=== PATIENT | female | born 1995 | race Caucasian/White ===

== ENCOUNTER → 2021-03-26 01:57 | Outpatient (CLI) | payer OTHER, SELFPAY ==
[2021-03-26 17:39] LABS: SARS-CoV-2 RNA PCR Negative
== END ==
PROVIDERS: Visit Provider Obstetrics & Gynecology
DX: Z01.812 Encounter for preprocedural laboratory examination (principal); Z20.822 Contact with and (suspected) exposure to COVID-19
CPT/HCPCS: C9803; U0003; U0005

== ENCOUNTER 2021-03-26 08:48 | Outpatient (CLI) | payer OTHER, SELFPAY | END 2021-03-26 08:49 | disposition home or self-care (01) | LOC: ANHLAB 08:53 | PROVIDERS: Visit Provider Obstetrics & Gynecology | DX: R10.2 Pelvic and perineal pain (principal); Z01.818 Encounter for other preprocedural examination | CPT/HCPCS: 36415; 86850; 86900; 86901; C9803; U0003; U0005 ==

== ENCOUNTER 2021-03-29 00:57 | Day surgery (SDC) | payer OTHER, SELFPAY ==
[2021-03-25 15:10] VITALS: BMI 32.6
--- NOTE | 2021-03-27 07:55 | P.HP_ITS ---
H&P: HPI History of Present Illness Date/Time: 03/27/21 07:55 20 for diagnostic laparoscopy left ovarian cystectomy she also has a hymeneal tag bothers her and that be. Risks and benefits reviewed including but not exclusive of , aspiration, bleeding, transfusion, perforation injury to bowel, bladder, ureters, or other internal organs with need for laparotomy. She had all questions answered and asked to proceed Chief Complaint: Pelvic pain/left ovarian cyst/hymeneal tag Review of Systems Review of Systems: All systems reviewed & are unremarkable except as noted in HPI and below [facility] Social History Social History Smoking status: Never smoker Spiritual care concerns: No Meds Home Medications and Allergies Home Medications Medication Instructions Recorded Confirmed Type No Home Medications 03/25/21 03/25/21 History Allergies Allergy/AdvReac Type Severity Reaction Status Date / Time morphine Allergy Severe Other Verified 03/25/21 15:08 Exam Const: General: no acute distress Eyes: General: appearance normal, both eyes and all related structures Neck: Neck: supple and no JVD Thyroid: thyroid normal Resp: Effort & Inspection: normal respiratory effort Auscultation: clear to auscultation bilaterally Cardio: Rate: regular rate Rhythm: regular rhythm GI: Inspection: non-distended GI Palp: Yes Soft to palpation, No Tenderness to palpation present (GI) and No Guarding due to palpation present (GI) Auscultation: normal bowel sounds : External Female Exam: normal external appearance (Moderate to large-sized the medial tag is seen at the anterior fourchette) Speculum Exam - Vagina: normal appearance of the vagina Speculum Exam - Cervix: normal appearance of the cervix Bimanual exam- vagina & uterus: enlarged and Uterine tenderness Bimanual Exam- Adnexa, other: tender on the left and Adnexal mass present on the left tender Skin: General skin exam: no rashes or lesions noted Extrem: General: normal to inspection and no edema Psych: Mental Status: mental status grossly normal Affect: normal affect Assessment and Plan Additional Plan Impression: Pelvic pain/left ovarian cyst/hymeneal tag Plan: Diagnostic laparoscopy/left ovarian cystectomy/excision of hymeneal tag
[2021-03-29] VITALS (9 sets, daily range): BP systolic 105–137; BP diastolic 55–88; PULSE 63–95; RESP 16–20; TEMP 36.4–36.9; O2SAT 98–100
--- NOTE | 2021-03-29 06:33 | WPDHPUPDATE1 ---
History and Physical Update Update Date/Time: 03/29/21 06:33 History and Physical has been reviewed, including an updated exam of the patient. There are NO changes in the patient's condition. Risks, benefits, and alternatives have been discussed and questions answered. Patient agrees to proceed with procedure.
[2021-03-29] MEDS: ACETAMINOPHEN 500 MG TABLET 1000 MG PO (09:55)
[2021-03-29] MEDS: KETOROLAC 15 MG/ML VIAL (*BKC) IV PUSH (10:05)
[2021-03-29] MEDS: LACTATED RINGERS 1,000 ML 30 ML IV CONT (10:05)
--- NOTE | 2021-03-29 10:12 | WPDANESEPPF ---
Anes - Initial Pre Proc Eval Procedure: Operation Date: 03/29/21 11:30 Proposed Procedures p Diagnostic Laparoscopy, Left Ovarian Cystectomy, - Kirill Chavira MD s Removal Hymenal Tag - Kirill Chavira MD Date/Time: 03/29/21 10:12 Surgeon: Kirill Chavira MD Pre Op Diagnosis: pelvic pain, dyspurenia, hymenal tag Patient Data Age: 26 Gender: F Height: 1.57 m Weight: 81.65 kg Last Vital Signs Temp 36.9 C 03/29/21 09:49 Pulse 90 03/29/21 09:49 Resp 16 03/29/21 09:49 BP 137/88 03/29/21 09:49 Pulse Ox 100 03/29/21 09:49 Allergies Allergy/AdvReac Type Severity Reaction Status Date / Time morphine Allergy Severe Palpitation Verified 03/29/21 09:53 s Home Medications Medication Instructions Recorded Confirmed Type hydrocodone-acetaminophen 1 tablet PO Q4H PRN #20 tablet 03/29/21 Rx Patient hx anesthesia problems: none Family hx anesthesia problems: none PMFSH Past Medical History Medical History (Updated 03/29/21 @ 10:13 by Kirill Bird MD) Obesity Surgical History Surgical History (Updated 03/29/21 @ 10:15 by Kirill Bird MD) H/O laparoscopy History of esophagogastroduodenoscopy (EGD) Social History Social History Smoking status: Never smoker Living arrangements: with family Spiritual care concerns: No Anes - Eval Final PreProcedure Day of Procedure 03/29/21 10:12 Patient weight: obese Heart: regular rate and rhythm Lungs: clear to auscultation Airway: Mallampati scale class II Neurological: alert and oriented Last oral intake: >/= 8 hours ASA classification: II Emergent: no Anesthetic plan: proceed Anesthesia type and monitoring: general ETT and standard monitoring Informed Consent: The patient's anesthetic plan and its attendant risks and benefits were discussed with the patient/family/POA. Questions were solicited and answers provided to the satisfaction of the patient/family/POA.
[2021-03-29] MEDS: SCOPOLAMINE 1.5 MG PATCH TRANSDERM (10:24)
--- NOTE | 2021-03-29 11:35 | W.PM.PROC2 ---
Procedure Note - Detailed Date of Procedure 03/29/21 Pre-op Diagnosis pelvic pain, dyspurenia, hymenal tag Post-op Diagnosis same (with endo and adhesions) Procedure Performed Laparoscopic destruction of endometriosis/lysis of adhesions excision of hymeneal tag Surgeon Kirill Chavira MD Anesthesia general Indications this is a 26-year-old status post hysterectomy and bilateral salpingectomy with pelvic pain and hymeneal tag Findings hymeneal tag on laparoscopy absent uterus with multiple adhesions normal-appearing ovaries . Pelvic adhesions. Small area of endometriosis along the vaginal cuff Description of Procedure patient is prepped draped in normal sterile fashion placed in the dorsal lithotomy position. Under excellent general endotracheal anesthesia weighted speculum placed post were vagina . Sponge stick was placed in vagina and the bladder emptied of clear urine. The weighted speculum was removed and the gloves were changed. A supraumbilical incision made in the Veress needle passed in the abdomen. Abdomen was filled with CO2 gas [id number]. The 5mm trocar advanced in the abdomen under direct visualization assuring no injury. The patient placed in Trendelenburg and a suprapubic incision made. 5Mm trocar advanced under direct visualization assuring no injury. Uterus was absent multiple adhesions were seen the ovaries actually appeared within normal limits and the previously seen left ovarian cyst was not present. Irrigation undertaken to clear and adhesions were brought down by sharp dissection revealing normal-appearing ovaries . A small area of endometriosis was seen along the vaginal cuff. This was cauterized at 35 w per 2nd with monopolar cautery. Irrigation was undertaken until clear. And no other abnormalities were seen. The gas removed from the abdomen and the in trocars then removed. The incisions closed with 4-0 Monocryl and glue. Attention was then turned to the perineum. The hymeneal tag was sharply dissected using monopolar cautery. Two [id number] 3-0 Vicryl were placed for closure and the patient was awakened. Blood loss was estimated at5cc for the entire procedure. All sponge, needle, instrument counts were correct. There were no immediate complications Estimated Blood Loss 5 Drains No Packing No Pathology yes Complications No immediate complications Condition stable Disposition PACU
[2021-03-29] MEDS: fentaNYL CITRATE INJ (*CRX) 100 MCG/2 ML VIAL 25 MCG IV PUSH ×5 (12:02→12:31)
[2021-03-29] MEDS: HYDROcodone/acetaminophen (*CRX) 5-325 MG TABLET 1 TAB PO (13:24)
== END 2021-03-29 13:55 | disposition home or self-care (01) ==
PROVIDERS: Visit Provider Obstetrics & Gynecology
PROC: (CPT 49320; principal; 2021-03-29 11:30)
PROC: (CPT 56700; 2021-03-29 11:30)
DX: R10.2 Pelvic and perineal pain (principal); N80.3 Endometriosis of pelvic peritoneum; N89.8 Other specified noninflammatory disorders of vagina; N94.10 Unspecified dyspareunia; N73.6 Female pelvic peritoneal adhesions (postinfective); E66.9 Obesity, unspecified; Z68.32 Body mass index [BMI] 32.0-32.9, adult
CPT/HCPCS: 56700; 58662; 88305; A9270; J0330; J1100; J1885; J2250; J2405; J2704; J3010; J7030; J7120

== ENCOUNTER 2021-04-08 12:29 | Emergency (ER) | payer OTHER, SELFPAY ==
--- NOTE | ~2021-04-08 | CT_ITS ---
EXAMINATION: CT abdomen pelvis w con DATE: 04/08/2021 15:28 INDICATION: Left lower quadrant abdominal pain and flank pain. TECHNIQUE: Computed tomography (CT) of the abdomen and pelvis was performed with 100 mL Omnipaque-350 intravenous contrast. Automated exposure control and iterative reconstruction technique were employe d. The dose-length product was 825.31 mGy-cm. COMPARISON: None FINDINGS: Lung bases are clear. Heart size is normal. No pericardial or pleural effusion. Liver, gallbladder, p ancreas, spleen, bilateral adrenal glands and kidneys are normal. Bowels including the appendix are n ormal. Bladder is normal. The uterus is not identified and has likely been surgically resected. Small amount of likely physiologic free fluid in the cul-de-sac. No abscess or free intraperitoneal gas. C ouple small phleboliths in the pelvis. No pathologically enlarged abdominal or pelvic lymphadenopathy . Bones are unremarkable. IMPRESSION: 1. No acute intra-abdominal/pelvic process. Reviewed, dictated and finalized at location B.
[2021-04-08 13:01] VITALS: BP 150/105; PULSE 93; RESP 18; TEMP 37; O2SAT 100
[2021-04-08 13:34] LABS: Basophils Percent Auto 0.3 % (0.2-1.2); Eosinophils Percent Auto 0.4 % (0-4.4); Hematocrit 40.8 % (37.0-47.0); Hemoglobin 13.9 g/dL (12.0-15.0); Immature Granulocyte Absolute 0.03 K/mm3 (0.00-0.031); Immature Granulocyte Percent A 0.3 % (0-0.5); Lymphocytes Absolute Auto 3.02 K/mm3 (0.9-3.2); Lymphocytes Percent Auto 30.8 % (18.3-44.2); Mean Corpuscular HGB Conc 34.1 g/dl (32-36); Mean Corpuscular Hemoglobin 30.5 pg (26-34); Mean Corpuscular Volume 89.7 fl (80-100); Mean Platelet Volume 9.1 fl (7.4-10.4); Monocytes Absolute Auto 0.6 K/mm3 (0.1-0.6); Monocytes Percent Auto 5.9 % (2.6-8.5); Neutrophils Absolute Auto 6.1 K/mm3 (1.3-6.7); Neutrophils Percent Auto 62.3 % (45.5-73.1); Platelet Count Result 311 k/mm3 (150-375); Red Blood Count 4.55 M/mm3 (4.2-5.4); Red Cell Distribution Width 12.4 % (11.5-14.5); White Blood Count 9.8 K/mm3 (4.5-10.0)
[2021-04-08 13:51] LABS: Alanine Aminotransferase 21 U/L (4-35); Albumin Level 4.7 g/dL (3.5-5.1); Alkaline Phosphatase 68 U/L (38-126); Anion Gap 9 mmol/L (8-16); Aspartate Amino Transferase 21 U/L (14-36); Bilirubin,Total 0.9 mg/dL (0.2-1.3); Blood Urea Nitrogen 8 mg/dL (7-17); Calcium 9.8 mg/dL (8.4-10.2); Carbon Dioxide 23 mmol/L (22-30); Chloride 105 mmol/L (98-107); Estimated CRCL calculation 115 ml/min; Estimated Glomerular Filt Rate > 60; Glucose 92 mg/dL (65-110); Lipase 94 U/L (23-300); Sodium 137 mmol/L (137-145)
--- NOTE | 2021-04-08 14:06 | ED.ABDPAIN ---
HPI - Abdominal Pain General Chief Complaint: Abdominal Pain Stated Complaint: LLQ PAIN TO THE BACK, S/P SURG 03/29- Time Seen by Provider: 04/08/21 13:51 History of Present Illness HPI narrative: 26 yo female presents to the ED c/o flank pain. She has had LLQ and flank pain for a long time. She has sugery on 03/29 for an ovarian cyst. She has had worse pain since the surgery. She also reports urinary frequency. No dysuria, hematuria, vaginal bleeding, discharge. Related Data Allergies Allergy/AdvReac Type Severity Reaction Status Date / Time morphine Allergy Severe Palpitation Verified 03/29/21 09:53 s Review of Systems Review of Systems: All systems reviewed & are unremarkable except as noted in HPI and below Constitutional: Constitutional: Denies fever(s) Cardiovascular: Cardiovascular: Denies chest pain Respiratory: Respiratory: Denies dyspnea Neurologic: Denies numbness and Denies weakness PMFSH Past Medical History Medical History (Updated 04/09/21 @ 00:00 by Aminta Vazquez) Obesity Surgical History Surgical History (Updated 03/29/21 @ 10:15 by Kirill Bird MD) H/O laparoscopy History of esophagogastroduodenoscopy (EGD) Social History Social History Smoking status: Never smoker Spiritual care concerns: No Exam Const: General: no acute distress and alert Orientation/consciousness: patient oriented x3 HENMT: Head: normal to inspection Resp: Effort & Inspection: normal respiratory effort Auscultation: clear to auscultation bilaterally, no rales, no rhonchi and no wheezes Cardio: Jugular venous distension: no JVD Rate: regular rate Rhythm: regular rhythm GI: Inspection: non-distended GI Palp: Yes Soft to palpation and Yes Tenderness to palpation present (GI) (LLQ) : General: Yes CVA tenderness on the left Skin: General skin exam: normal color Neuro: General: patient oriented x3 and moves all extremities Speech: normal speech Gait exam (Neuro): Normal gait present Extrem: General: no edema Psych: Appearance: well kempt Affect: normal affect Course Vital Signs Vital signs: Vital Signs Temperature 37.0 C 04/08/21 13:01 Pulse Rate 93 04/08/21 13:01 Respiratory Rate 18 04/08/21 13:01 Blood Pressure 150/105 H 04/08/21 13:01 Pulse Oximetry 100 04/08/21 13:01 Temperature 37.0 C 04/08/21 13:01 Pulse Rate 90 04/08/21 16:04 Respiratory Rate 18 04/08/21 16:04 Blood Pressure 147/96 H 04/08/21 16:04 Pulse Oximetry 100 04/08/21 16:04 MDM - Abdominal Pain Differential Diagnosis Differential diagnosis: Likely calculus of kidney and constipation Medical Records Attestation: I reviewed the patient's medical records. Lab Data Attestation: I reviewed the patient's lab results. Result diagrams: 04/08/21 13:23 04/08/21 13:23 Labs: Lab Results 04/08/21 04/08/21 04/08/21 Range/Units 13: 13:23 13:55 WBC 9.8 (4.5-10.0) K/mm3 RBC 4.55 (4.2-5.4) M/mm3 Hgb 13.9 (12.0-15.0) g/dL Hct 40.8 (37.0-47.0) % MCV 89.7 (80-100) fl MCH 30.5 (26-34) pg MCHC 34.1 (32-36) g/dl RDW 12.4 (11.5-14.5) % Plt Count 311 (150-375) k/mm3 MPV 9.1 (7.4-10.4) fl Immature Gran % (Auto) 0.3 (0-0.5) % Neut % (Auto) 62.3 (45.5-73.1) % Lymph % (Auto) 30.8 (18.3-44.2) % [place] % (Auto) 5.9 (2.6-8.5) % Eos % (Auto) 0.4 (0-4.4) % Baso % (Auto) 0.3 (0.2-1.2) % Lymph # (Auto) 3.02 (0.9-3.2) K/mm3 [place] # (Auto) 0.6 (0.1-0.6) K/mm3 Eos # (Auto) 0.0 (0-0.3) K/mm3 Baso # (Auto) 0.0 (0.0-0.1) K/mm3 Abs Immat Gran (auto) 0.03 (0.00-0.031) K/mm3 Absolute Neuts (auto) 6.1 (1.3-6.7) K/mm3 Absolute Nucleated RBC 0.0 (0.0-0.012) K/mm3 Nucleated RBC % 0.0 (0.0-0.2) % Sodium 137 (137-145) mmol/L Potassium 4.0 (3.4-5.0) mmol/L Chloride 105 (98-107) mmol/L Carbon Gregor
[2021-04-08 14:10] LABS: Add Urine Microscopic? NO; Appearance Urine Clear (Clear); Bilirubin Urine Negative (Negative); Blood Urine Negative (Negative); Color Urine Yellow (Yellow); Glucose Urine UA Negative (Negative); Ketones Urine Negative (Negative); Leukocyte Esterase Ur Negative LEU/UL (Negative); Nitrate Urine Negative (Negative); Protein Urine Negative (Negative); Specific Grav Ur 1.015 (1.001-1.035); Urobilinogen Urine Negative mg/dL (<2.0)
[2021-04-08 16:04] VITALS: BP 147/96; PULSE 90; RESP 18; O2SAT 100
== END 2021-04-08 16:04 | disposition home or self-care (01) ==
PROVIDERS: Family Medicine; Emergency Provider Emergency Medicine
DX: R10.32 Left lower quadrant pain (principal); E66.9 Obesity, unspecified; Z68.34 Body mass index [BMI] 34.0-34.9, adult
CPT/HCPCS: 36415; 74177; 80053; 81003; 83690; 85025; 99284; Q9967

== ENCOUNTER → 2021-05-07 04:00 | Outpatient (CLI) | payer OTHER, SELFPAY ==
[2021-05-07 18:18] LABS: SARS-CoV-2 RNA PCR Negative
== END ==
PROVIDERS: Visit Provider Internal Medicine Gastroenterology
DX: Z20.822 Contact with and (suspected) exposure to COVID-19 (principal)
CPT/HCPCS: C9803; U0003; U0005

== ENCOUNTER 2021-05-10 01:30 | Day surgery (SDC) | payer OTHER, SELFPAY ==
[2021-04-30 14:15] VITALS: BMI 31.4
--- NOTE | 2021-05-09 20:40 | PM.HPGS ---
History of Present Illness History of Present Illness Consent: Risks, benefits, and alternatives have been discussed and questions answered. Patient agrees to proceed with procedure. Chief complaint: left sided pain, diarrhea Narrative: Carmenza Roberts is a 26 year old female who has been troubled by diarrhea, as if 'food goes right through' Also has unexplained LLQ pain. CT negative. She had recent laparoscopic procedure thinking there was an ovarian cyst but this procedure was negative. She has had a prior tubal ligation, hysterectomy, treatment for endometriosis, but the pain along the left pelvic rim persists. Many years ago she was told she had irritable bowel syndrome. The loose stools started this year but the pain in the left side has been constant. lately she will have radiation of the pain to her back, particularly if she is standing. Review of Systems Review of Systems: All systems reviewed & are unremarkable except as noted in HPI and below PMFSH Past Medical History Medical History Obesity Surgical History Surgical History H/O laparoscopy History of esophagogastroduodenoscopy (EGD) Social History Social History Smoking status: Never smoker Alcohol intake: never Substance use: never Substance use type: does not use Living arrangements: with family Spiritual care concerns: No Meds Home Medications and Allergies Home Medications Medication Instructions Recorded Confirmed Type No Home Medications 04/30/21 04/30/21 History Allergies Allergy/AdvReac Type Severity Reaction Status Date / Time morphine Allergy Severe Palpitation Verified 05/10/21 11:16 s Exam Resp: Auscultation: clear to auscultation bilaterally Cardio: Rate: regular rate Rhythm: regular rhythm GI: GI Palp: Yes Soft to palpation and No Tenderness to palpation present (GI) Assessment and Plan Assessment and plan (1) Chronic diarrhea: Code(s): K52.9 - Noninfective gastroenteritis and colitis, unspecified Status: Acute Assessment and Plan: Colonoscopy with possible biopsy or polypectomy or cautery or injection of substances.
[2021-05-10 11:17] VITALS: BP 148/90; PULSE 85; RESP 16; TEMP 36.4; O2SAT 100
[2021-05-10] MEDS: LACTATED RINGERS 1,000 ML 150 ML IV CONT (11:37)
--- NOTE | 2021-05-10 11:39 | P.PNAN_ITS ---
Anes - Initial Pre Proc Eval Procedure: Operation Date: 05/10/21 12:15 Proposed Procedures p Colonoscopy - Saurav Hu MD Date/Time: 05/10/21 11:39 Surgeon: Saurav Hu MD Pre Op Diagnosis: left sided pain, diarrhea Patient Data Age: 26 Gender: F Height: 1.57 m Weight: 78 kg Last Vital Signs Temp 97.5 F L 05/10/21 11:17 Pulse 85 05/10/21 11:17 Resp 16 05/10/21 11:17 BP 148/90 H 05/10/21 11:17 Pulse Ox 100 05/10/21 11:17 Allergies Allergy/AdvReac Type Severity Reaction Status Date / Time morphine Allergy Severe Palpitation Verified 05/10/21 11:16 s Home Medications Medication Instructions Recorded Confirmed Type No Home Medications 04/30/21 04/30/21 History Patient hx anesthesia problems: none Family hx anesthesia problems: none Results Review: All pre-operative results and documents have been reviewed as part of the pre-operative evaluation. [facility] Past Medical History Medical History (Updated 05/09/21 @ 20:41 by Saurav Hu MD) Obesity Surgical History Surgical History (Updated 03/29/21 @ 10:15 by Kirill Bird MD) H/O laparoscopy History of esophagogastroduodenoscopy (EGD) Social History Social History Smoking status: Never smoker Alcohol intake: never Substance use: never Substance use type: does not use Living arrangements: with family Spiritual care concerns: No Anes - Eval Final PreProcedure Day of Procedure 05/10/21 11:39 Patient weight: obese Heart: regular rate and rhythm Airway: Mallampati scale class II Neurological: alert and oriented Last oral intake: >/= 8 hours ASA classification: II Emergent: no Anesthetic plan: proceed Anesthesia type and monitoring: general GIVS and standard monitoring Results Review: All pre-operative results and documents have been reviewed as part of the pre-operative evaluation. Informed Consent: The patient's anesthetic plan and its attendant risks and benefits were discussed with the patient/family/POA. Questions were solicited and answers provided to the satisfaction of the patient/family/POA.
[2021-05-10 12:19] VITALS: BP 105/60; PULSE 62; RESP 21; O2SAT 100
[2021-05-10 12:29] VITALS: BP 105/64; PULSE 60; RESP 22; O2SAT 100
[2021-05-10 12:39] VITALS: BP 113/78; PULSE 61; RESP 20; O2SAT 100
== END 2021-05-10 12:55 | disposition home or self-care (01) ==
PROVIDERS: Visit Provider Internal Medicine Gastroenterology
PROC: 0DJD8ZZ Inspection of Lower Intestinal Tract, Via Natural or Artificial Opening Endoscopic (ICD-10-PCS; CPT 45378; principal; 2021-05-10 12:15)
DX: K52.9 Noninfective gastroenteritis and colitis, unspecified (principal)
CPT/HCPCS: 45380; 88305; J2704; J7120

== ENCOUNTER 2022-03-10 12:48 | Outpatient (CLI) | payer OTHER, SELFPAY | END 2022-03-10 12:49 | disposition home or self-care (01) | PROVIDERS: PCP Physician Assistant; Visit Provider Obstetrics & Gynecology | DX: N83.202 Unspecified ovarian cyst, left side (principal) | CPT/HCPCS: 36415; 86850; 86900; 86901 ==

== ENCOUNTER 2022-03-14 02:23 | Day surgery (SDC) | payer OTHER, SELFPAY ==
[2022-03-05 10:41] VITALS: BMI 34.0
--- NOTE | 2022-03-05 11:12 | SUR.PREOP ---
Report to the Outpatient Waiting Room, entrance under the green pavilion located off [facility], at time 0730 on date 03/14/22. OR Time: 0930. - You and your visitor will be asked a series of questions to screen for COVID 19 for your protection. - Only one visitor is allowed at this time. - The patient visitor is requested to leave or wait in car when not with patient. - A mask is required within the hospital. Patients may have clear liquids (water, carbonated beverages, clear teas, apple juice) until 3 hours (0630) prior to surgery with a maximum of 20 ounces. - No food from midnight until time of surgery - Infants may have breast milk until 4 hours before surgery, infant formula 6 hours prior to surgery. - Children will be allowed to drink immediately following surgery. If applicable, please bring a bottle or sippy cup to assist with drinking. Juice, water, soda, and popsicles are readily available. For infants on formula, please bring formula the day of surgery. Pacifiers are allowed. Take the following medications with a SIP of water the morning of surgery: ___NA Medications to discontinue per physician NA Date to take last dose NA Please no make-up, nail urdu, hairspray, perfume, deodorant, or body powder the day of surgery. No jewelry (including any body piercings) or valuables the day of surgery, leave them at home. Please take a shower or bath the night before, or the morning of, surgery with an antibacterial soap. Wear comfortable, loose fitting clothing. Children are encouraged to wear pajamas. - Jewelry must be removed prior to entering the operating room. Rings and piercings that are not removed may be cut off. - The hospital will not accept responsibility for valuables. - Please leave all valuables, including medications, at home the day of surgery. If you are going home after surgery, a licensed cdl truck driver must drive you home. - NO public transportation without another adult. - We recommend that an adult stay with you for 24 hours following discharge. - We also recommend that you do not drive, make important decision, drink alcoholic beverages, or take any drugs that were not prescribed by your health care provider for at least 24 hours after your discharge time. For Pediatric surgeries, we recommend two adults accompany the child home (only one inside the building at this time). Follow any additional instructions given to you from your surgeon. If you or anyone in your household have experienced Covid symptoms in the past week, please notify your surgeon or the nurse liaison at the phone number below for possible testing. Telephone instructions given to ____patient and asked if any additional questions and then verbalized understanding. Patient advised to call surgeon office or pre surgery nurse liaison [phone] if any additional questions.
--- NOTE | 2022-03-12 06:55 | PM.IMHP ---
H&P: HPI History of Present Illness Date/Time: 03/12/22 06:55 Chief Complaint: pelvic pain and left ovarian cyst Narrative: this is a 27-year-old status post hysterectomy admitted for diagnostic laparoscopy and left cystectomy. She has severe pelvic pain which has been unrelenting for more than 6 months. She had a negative GI workup. Risks and benefits reviewed including but not exclusive of , aspiration pneumonia, bleeding, transfusion, perforation injury to bowel, bladder, ureters, or other internal organs. She received the [employer] handout entitled laparoscopy. She asked to proceed PMFSH Past Medical History Medical History Obesity Surgical History Surgical History H/O laparoscopy History of esophagogastroduodenoscopy (EGD) Social History Social History Smoking status: Never smoker Alcohol intake: never Substance use: never Substance use type: does not use Spiritual care concerns: No Meds Home Medications and Allergies Home Medications Medication Instructions Recorded Confirmed Type escitalopram oxalate 10 mg tablet 10 mg PO HS 03/05/22 03/05/22 History Allergies Allergy/AdvReac Type Severity Reaction Status Date / Time morphine Allergy Severe Palpitation Verified 03/05/22 10:40 s Exam : Bimanual exam- vagina & uterus: uterus absent and other ( cervix absent) Bimanual Exam- Adnexa, other: tender bilaterally Assessment and Plan Assessment and plan (1) Pelvic pain: Code(s): R10.2 - Pelvic and perineal pain Status: Acute (2) Left ovarian cyst: Code(s): N83.202 - Unspecified ovarian cyst, left side Status: Acute Plan diagnostic laparoscopy with possible left cyst salpingo-oophorectomy were cystectomy
[2022-03-14] VITALS (11 sets, daily range): BP systolic 108–143; BP diastolic 48–91; PULSE 68–91; RESP 12–16; TEMP 36.3–36.5; O2SAT 96–100
--- NOTE | 2022-03-14 06:43 | WPDHPUPDATE1 ---
History and Physical Update Update Date/Time: 03/14/22 06:43 History and Physical has been reviewed, including an updated exam of the patient. There are NO changes in the patient's condition. Risks, benefits, and alternatives have been discussed and questions answered. Patient agrees to proceed with procedure.
[2022-03-14] MEDS: ACETAMINOPHEN 500 MG TABLET 1000 MG PO (07:51)
[2022-03-14] MEDS: LACTATED RINGERS 1,000 ML 30 ML IV CONT (08:09)
--- NOTE | 2022-03-14 08:20 | WPDANESEPPF ---
Anes - Initial Pre Proc Eval Procedure: Operation Date: 03/14/22 09:30 Proposed Procedures p Laparoscopic Left Ovarian Cystectomy, Possible Left Salpingo-Oophorectomy - Kirill Chiu MD Date/Time: 03/14/22 08:20 Surgeon: Kirill Chiu MD Pre Op Diagnosis: Left Ovarian Cyst, Pain Patient Data Age: 27 Gender: F Height: 1.56 m Weight: 82.9 kg Last Vital Signs Temp 36.5 C 03/14/22 08:15 Pulse 88 03/14/22 08:15 Resp 16 03/14/22 08:15 BP 141/91 H 03/14/22 08:15 Pulse Ox 100 03/14/22 08:15 O2 Del Method Room Air 03/14/22 08:15 Allergies Allergy/AdvReac Type Severity Reaction Status Date / Time morphine Allergy Severe Palpitation Verified 03/05/22 10:40 s Home Medications Medication Instructions Recorded Confirmed Type escitalopram oxalate 10 mg tablet 10 mg PO HS 03/05/22 03/05/22 History hydrocodone 5 mg-acetaminophen 325 1 tablet PO Q4H PRN pain #30 tabs 03/14/22 Rx mg tablet Patient hx anesthesia problems: none Family hx anesthesia problems: none Results Review: All pre-operative results and documents have been reviewed as part of the pre-operative evaluation. [facility] Past Medical History Medical History (Updated 03/12/22 @ 07:00 by Kirill Chiu MD) Obesity Surgical History Surgical History (Updated 03/14/22 @ 08:20 by Kirill Bird MD) H/O laparoscopy H/O: hysterectomy History of esophagogastroduodenoscopy (EGD) Social History Social History Smoking status: Never smoker Alcohol intake: never Substance use: never Substance use type: does not use Living arrangements: with family Spiritual care concerns: No Anes - Eval Final PreProcedure Day of Procedure 03/14/22 08:20 Patient weight: obese Heart: regular rate and rhythm Lungs: clear to auscultation Airway: Mallampati scale class II Last oral intake: >/= 8 hours ASA classification: II Emergent: no Anesthetic plan: proceed Anesthesia type and monitoring: general ETT and standard monitoring Results Review: All pre-operative results and documents have been reviewed as part of the pre-operative evaluation. Informed Consent: The patient's anesthetic plan and its attendant risks and benefits were discussed with the patient/family/POA. Questions were solicited and answers provided to the satisfaction of the patient/family/POA.
[2022-03-14] MEDS: KETOROLAC 15 MG/ML VIAL (*BKC) IV PUSH (08:39)
--- NOTE | 2022-03-14 09:35 | W.PM.PROC2 ---
Procedure Note - Detailed Date of Procedure 03/14/22 Pre-op Diagnosis Left Ovarian Cyst, Pain Post-op Diagnosis Same Procedure Performed Laparoscopic left salpingo-oophorectomy with lysis of adhesions Surgeon Kirill Chiu MD Anesthesia General Indications This is a 27-year-old status post hysterectomy with a large left ovarian cyst and pelvic pain Findings Absent uterus and tubes. Large left ovarian cyst that was encased in adhesions. Normal-appearing right ovary Description of Procedure The patient prepped draped in sterile fashion placed dorsal lithotomy position. Excellent general trach anesthesia weighted speculum placed in posterior fornix vagina. Sponge stick was placed and the bladder draining clear urine. The weighted speculum was removed. The gloves were changed Supraumbilical incision made the Veress needle passed in the abdomen. Abdomen filled with CO2 gas [id number]. The 5mm trocar advanced through the Optiview and no injury seen. Gas reattached patient placed in Trendelenburg. 5mm trocar was advanced in the suprapubic area under direct visualization assuring injury. Large complex left ovarian cyst encased in adhesions was noted. A left lower quadrant incision made and the 10mm trocar advanced under direct visualization assuring injury. Using pole and cut method the adhesions were sharply dissected avoiding injury to the under lying vital structures including bowel and blood vessels. Once the infundibulopelvic structure was skeletonized. This was clamped burned and cut with the LigaSure and placed in an Endo catch. This was removed through the left lower quadrant incision. Irrigation undertaken until clear. The right ovary appeared within normal limits was left. The gas removed from the abdomen. The incisions closed with 4-0 Monocryl glue. Sponge stick from and the patient went to recovery in satisfactory condition. All sponge, needle, instrument counts were correct. There were no immediate complications Estimated Blood Loss 5 Drains No Packing No Pathology Yes Complications No immediate complications Condition Stable Disposition PACU
[2022-03-14] MEDS: fentaNYL CITRATE INJ (*CRX) 100 MCG/2 ML VIAL 25 MCG IV PUSH ×4 (10:07→11:28)
== END 2022-03-14 11:55 | disposition home or self-care (01) ==
PROVIDERS: PCP Physician Assistant; Visit Provider Obstetrics & Gynecology
PROC: (CPT 49320; principal; 2022-03-14 09:30)
DX: N83.202 Unspecified ovarian cyst, left side (principal); R10.2 Pelvic and perineal pain; N73.6 Female pelvic peritoneal adhesions (postinfective); Z90.710 Acquired absence of both cervix and uterus; E66.9 Obesity, unspecified; Z68.34 Body mass index [BMI] 34.0-34.9, adult
CPT/HCPCS: 58661; 88305; A9270; J0330; J1100; J1885; J2250; J2405; J2704; J3010; J7030; J7120

== ENCOUNTER 2022-10-17 14:48 | Outpatient (CLI) | payer OTHER, SELFPAY | END 2022-10-17 14:49 | disposition home or self-care (01) | PROVIDERS: PCP Physician Assistant; Visit Provider Obstetrics & Gynecology | DX: R10.2 Pelvic and perineal pain (principal) | CPT/HCPCS: 36415; 86850; 86900; 86901 ==

== ENCOUNTER 2022-10-31 00:50 | Day surgery (SDC) | payer OTHER, SELFPAY ==
[2022-10-14 14:51] VITALS: BMI 36.4
--- NOTE | 2022-10-14 14:55 | PC.NURSE ---
Addendum entered by Susan Echevarria RN 10/22/22 11:35: PT TO ARRIVE AT 1215 ON 10/31/22 FOR SURGERY AT 1415. Original Note: Report to the Outpatient Waiting Room, entrance under the green pavilion located off [facility], at time 7:30 on date 10/24/22. Planned Procedure Time: 9:30. Time changes happen often and if your time is changed the preop area will call you the afternoon before. - You and your visitor will be asked to self-screen and do not enter if you have any COVID symptoms. - Only one visitor is requested with a max of two and NO children visitors are allowed at this time. - The patient visitor may be requested to leave or wait in car when not with patient due to distancing restrictions. - A mask is optional within the hospital at this time. Patients may have clear liquids (water, carbonated beverages, clear teas, apple juice) until 3 hours prior to surgery with a maximum of 20 ounces. - No food from midnight until time of surgery Take the following medications with a SIP of water the morning of surgery: N/A DO NOT STOP ANY OF YOUR OTHER PRESCRIPTION MEDICATIONS PRIOR TO SURGERY EXCEPT THE FOLLOWING Medications to discontinue per physician: N/A Date to take last dose: N/A Please no make-up, nail azerbaijani, hairspray, perfume, deodorant, or body powder the day of surgery. No jewelry (including any body piercings) or valuables the day of surgery, leave them at home. Please take a shower or bath the night before, or the morning of, surgery with an antibacterial soap. Wear comfortable, loose fitting clothing. - Jewelry must be removed prior to entering the operating room. Rings and piercings that are not removed may be cut off. - The hospital will not accept responsibility for valuables. - Please leave all valuables, including medications, at home the day of surgery. If you are going home after surgery, a licensed dedicated regional driver must drive you home. - NO public transportation without another adult if you receive anesthesia. - We recommend that an adult stay with you for 24 hours following discharge. - We also recommend that you do not drive, make important decision, drink alcoholic beverages, or take any drugs that were not prescribed by your health care provider for at least 24 hours after your discharge time. Follow any additional instructions given to you from your surgeon. If you or anyone in your household have experienced Covid symptoms in the past week, please notify your surgeon or the nurse liaison at the phone number below for possible testing. Telephone instructions given to MEI POMPA and asked if any additional questions and then verbalized understanding. Patient advised to call surgeon office or pre surgery nurse liaison [phone] if any additional questions.
--- NOTE | 2022-10-22 11:36 | PC.NURSE ---
Pt states no changes in medications or health history since initial interview. New pre-op instructions reviewed with pt. Pt denies further questions at this time.
--- NOTE | 2022-10-28 07:51 | PM.IMHP ---
H&P: HPI History of Present Illness Date/Time: 10/28/22 07:51 Chief Complaint: Pelvic pain and right ovarian cyst Narrative: This is a 27-year-old female status post hysterectomy with severe pelvic pain. She has an ovarian cyst and suspected adhesions. She will undergo diagnostic laparoscopy with right ovarian cystectomy. Risks and benefits reviewed including but not exclusive of , aspiration 1, bleeding, transfusion, perforation injury to bowel, bladder, ureters or other internal organs with need for open laparotomy. She received the [employer] handout entitled laparoscopy. She had all questions answered. She asked to proceed PMFSH Past Medical History Medical History Obesity Surgical History Surgical History H/O laparoscopy H/O: hysterectomy History of esophagogastroduodenoscopy (EGD) Social History Social History Smoking status: Never smoker Alcohol intake: never Substance use: current Substance use type: marijuana Living arrangements: with family Spiritual care concerns: No Meds Home Medications and Allergies Home Medications Medication Instructions Recorded Confirmed Type escitalopram oxalate 10 mg tablet 10 mg PO HS 03/05/22 10/22/22 History Allergies Allergy/AdvReac Type Severity Reaction Status Date / Time morphine Allergy Severe Palpitation Verified 10/22/22 11:35 s Exam Const: General: cooperative, healthy appearing, comfortable and well groomed Nutritional Appearance: overweight Orientation/consciousness: oriented to person, oriented to place and oriented to time HENMT: Head: normal to inspection Resp: Effort & Inspection: normal respiratory effort Cardio: Rate: regular rate Rhythm: regular rhythm Heart sounds: S1 normal heart sound present and S2 normal heart sound present GI: Inspection: normal to inspection : External Female Exam: normal external appearance Speculum Exam - Vagina: normal appearance of the vagina Speculum Exam - Cervix: Cervix absent Bimanual exam- vagina & uterus: uterus absent Bimanual Exam- Adnexa, other: tender on the right Assessment and Plan Assessment and plan (1) Pelvic pain: Code(s): R10.2 - Pelvic and perineal pain Status: Acute (2) Right ovarian cyst: Code(s): N83.201 - Unspecified ovarian cyst, right side Status: Acute Plan Diagnostic laparoscopy with right cystectomy
[2022-10-31] VITALS (12 sets, daily range): BP systolic 109–157; BP diastolic 45–98; PULSE 62–94; RESP 12–20; TEMP 36.1–36.3; O2SAT 96–100
--- NOTE | 2022-10-31 06:28 | WPDHPUPDATE1 ---
History and Physical Update Update Date/Time: 10/31/22 06:28 History and Physical has been reviewed, including an updated exam of the patient. There are NO changes in the patient's condition. Risks, benefits, and alternatives have been discussed and questions answered. Patient agrees to proceed with procedure.
[2022-10-31] MEDS: ACETAMINOPHEN 500 MG TABLET 1000 MG PO (12:33)
[2022-10-31] MEDS: KETOROLAC 15 MG/ML VIAL (*BKC) IV PUSH (12:49)
--- NOTE | 2022-10-31 13:20 | WPDANESEPPF ---
Anes - Initial Pre Proc Eval Procedure: Operation Date: 10/31/22 14:15 Proposed Procedures p Laparoscopy with Right Ovarian Cystectomy - Kirill Chiu MD Date/Time: 10/31/22 13:20 Surgeon: Kirill Chiu MD Pre Op Diagnosis: pelvic pain, right ovarian cyst Patient Data Age: 27 Gender: F Height: 1.55 m Weight: 86.6 kg Last Vital Signs Temp 36.1 C L 10/31/22 12:12 Pulse 74 10/31/22 12:12 Resp 16 10/31/22 12:12 BP 126/78 10/31/22 12:12 Pulse Ox 100 10/31/22 12:12 O2 Del Method Room Air 10/31/22 12:12 Allergies Allergy/AdvReac Type Severity Reaction Status Date / Time morphine Allergy Severe Palpitation Verified 10/31/22 12:29 s Home Medications Medication Instructions Recorded Confirmed Type escitalopram oxalate 10 mg tablet 10 mg PO HS 03/05/22 10/31/22 History hydrocodone 5 mg-acetaminophen 325 1 tablet PO Q4H PRN pain #30 tabs 10/31/22 Rx mg tablet Patient hx anesthesia problems: none Family hx anesthesia problems: none Results Review: All pre-operative results and documents have been reviewed as part of the pre-operative evaluation. [facility] Past Medical History Medical History Obesity Surgical History Surgical History H/O laparoscopy H/O: hysterectomy History of esophagogastroduodenoscopy (EGD) Social History Social History Smoking status: Never smoker Alcohol intake: never Substance use: current Substance use type: marijuana Living arrangements: with family Spiritual care concerns: No Anes - Eval Final PreProcedure Day of Procedure 10/31/22 13:20 Patient weight: obese Heart: regular rate and rhythm Lungs: clear to auscultation Airway: Mallampati scale class 1 Neurological: alert and oriented Last oral intake: >/= 8 hours ASA classification: II Emergent: no Anesthetic plan: proceed Anesthesia type and monitoring: general ETT and standard monitoring Results Review: All pre-operative results and documents have been reviewed as part of the pre-operative evaluation. Informed Consent: The patient's anesthetic plan and its attendant risks and benefits were discussed with the patient/family/POA. Questions were solicited and answers provided to the satisfaction of the patient/family/POA.
[2022-10-31] MEDS: SCOPOLAMINE 1.5 MG PATCH TRANSDERM (13:29)
[2022-10-31] MEDS: LACTATED RINGERS 1,000 ML 30 ML IV CONT (13:29)
--- NOTE | 2022-10-31 14:17 | W.PM.PROC2 ---
Procedure Note - Detailed Date of Procedure 10/31/22 Pre-op Diagnosis pelvic pain, right ovarian cyst Post-op Diagnosis Other (Aquino's) Procedure Performed laparoscopy /destruction of right ovarian cyst/destruction of endometriosis Surgeon Kirill Chiu MD Anesthesia General Indications a 27-year-old female status post hysterectomy left salpingo-oophorectomy with an ovarian cyst severe pelvic pain Findings absent left ovary and tube absent uterus. Small simple appearing ovarian cyst. Small areas of powder burn endometriosis along right left uterosacral ligaments. Some adhesions from the colon to the left lateral sidewall which were easily removed. Description of Procedure Patient was prepped draped in the normal sterile fashion placed in the dorsal lithotomy position. Under excellent general trach anesthesia weighted speculum placed this 1st vagina. Sponge stick was placed in the bladder draining clear urine. Weighted speculum was removed gloves were changed. A Sous prior umbilical incision was made the Veress needle passed in the abdomen abdomen filled with CO2 gas 15mmHg. 5mm trocar advanced under direct visualization assuring patient placed in Trendelenburg and a suprapubic incision made. The 5mm trocar advanced cm downside visualized or seen. Gas reattached patient placed Trendelenburg again. The adhesions on the left so the left adnexal area was covered with omentum this was bluntly and sharply dissected till it was noted be clear the ovary and tube were absent as was the uterus. A small area of endometriosis was seen uterosacral on the left and the right and this was cauterized at 45 w per 2nd. On the vaginal cuff were 2 small areas of powder burn endometriosis and these were cauterized at 35 w per 2nd. Irrigation was undertaken small simple ovarian cyst was present with a corpus luteum and the simple cyst was opened in linear fashion and drained clear fluid. Low on no other abnormalities were seen. The lower site removed. The upper site removed. The incisions closed with 4 Monocryl and glue after gas had been removed and trocars removed. Patient was awakened went to recovery in satisfactory condition. All sponge, needle, instrument counts were correct. There were no immediate complications Estimated Blood Loss 5 Drains No Packing No Pathology None sent Complications No immediate complications Condition Stable Disposition PACU
[2022-10-31] MEDS: fentaNYL CITRATE INJ (*CRX) 100 MCG/2 ML VIAL 25 MCG IV PUSH ×6 (14:40→15:23)
[2022-10-31] MEDS: MIDAZOLAM HCL (*CRX) 2 MG/2 ML VIAL 1 MG IV PUSH ×2 (15:55→16:08)
== END 2022-10-31 17:08 | disposition home or self-care (01) ==
PROVIDERS: PCP Physician Assistant; Visit Provider Obstetrics & Gynecology
PROC: (CPT 49320; principal; 2022-10-31 14:15)
DX: N83.201 Unspecified ovarian cyst, right side (principal); N73.6 Female pelvic peritoneal adhesions (postinfective); N80.3C3 Endometriosis of bilateral uterosacral ligament(s), unspecified depth; R10.2 Pelvic and perineal pain; E66.9 Obesity, unspecified; Z68.36 Body mass index [BMI] 36.0-36.9, adult; F12.90 Cannabis use, unspecified, uncomplicated
CPT/HCPCS: 58662; A9270; J1100; J1885; J2250; J2405; J2704; J2710; J3010; J7120

== ENCOUNTER 2024-02-24 10:11 | Outpatient (CLI) | payer MEDICAID, SELFPAY | END 2024-02-24 10:12 | disposition home or self-care (01) | LOC: ANHSURGERY 10:14 | PROVIDERS: PCP Physician Assistant; Visit Provider Obstetrics & Gynecology | DX: Z01.818 Encounter for other preprocedural examination (principal); N83.201 Unspecified ovarian cyst, right side | CPT/HCPCS: 36415; 86850; 86900; 86901 ==

== ENCOUNTER 2024-02-26 00:11 | Day surgery (SDC) | payer MEDICAID, SELFPAY ==
[2024-02-22 17:51] VITALS: BMI 38.3
--- NOTE | 2024-02-22 18:16 | PC.NURSE ---
Report to the Outpatient Waiting Room, entrance under the green pavilion located off [facility], at 0815 on 02-26-24. Planned Procedure Time: 1015. Time changes happen often and if your time is changed the preop area will call you the afternoon before. - You and your visitor will be asked to self-screen and do not enter if you have any COVID symptoms. - A mask is optional within the hospital at this time. Patients may have clear liquids (water, carbonated beverages, clear teas, apple juice) until 3 hours prior to surgery with a maximum of 20 ounces. 0715 - No food from midnight until time of surgery - Infants may have breast milk until 4 hours before surgery, formula 6 hours prior to surgery. - Children will be allowed to drink immediately following surgery. If applicable, please bring a bottle or sippy cup to assist with drinking. Juice, water, soda, and popsicles are readily available. For infants on formula, please bring formula the day of surgery. Pacifiers are allowed. Take the following medications with a SIP of water the morning of surgery: Tylenol if needed DO NOT STOP ANY OF YOUR OTHER PRESCRIPTION MEDICATIONS PRIOR TO SURGERY ?EXCEPT THE FOLLOWING Medications to discontinue per physician: N/A Please no make-up, nail [place], hairspray, perfume, deodorant, or body powder the day of surgery. No jewelry (including any body piercings) or valuables the day of surgery, leave them at home. Please take a shower or bath the night before, or the morning of, surgery with an antibacterial soap. Wear comfortable, loose fitting clothing. Children are encouraged to wear pajamas. - Jewelry must be removed prior to entering the operating room. Rings and piercings that are not removed may be cut off. - The hospital will not accept responsibility for valuables. - Please leave all valuables, including medications, at home the day of surgery. If you are going home after surgery, a licensed cdl flatbed truck driver must drive you home. - NO public transportation without another adult if you receive anesthesia. - We recommend that an adult stay with you for 24 hours following discharge. - We also recommend that you do not drive, make important decision, drink alcoholic beverages, or take any drugs that were not prescribed by your health care provider for at least 24 hours after your discharge time. For Pediatric surgeries, we recommend two adults accompany the child home. Follow any additional instructions given to you from your surgeon. If you or anyone in your household have experienced Covid symptoms in the past week, please notify your surgeon or the nurse liaison at the phone number below for possible testing. Telephone instructions given to Carmenza Roberts and asked if any additional questions and then verbalized understanding. Patient advised to call surgeon office or pre surgery nurse liaison [phone] if any additional questions.
--- NOTE | 2024-02-23 12:52 | PM.IMHP ---
H&P: HPI History of Present Illness Date/Time: 02/23/24 12:52 Chief Complaint: Pelvic pain and right ovarian cyst Narrative: 28-year-old female 5 para 4 status post hysterectomy and left oophorectomy admitted for right ovarian cyst cystectomy and possible right oophorectomy performed laparoscopically. Risks and benefits reviewed in great detail. She understands if the ovaries removed she will become menopausal and the need for replacement of hormone was discussed. She had all questions answered and asked to proceed PMFSH Past Medical History Medical History Obesity Surgical History Surgical History H/O laparoscopy H/O: hysterectomy History of esophagogastroduodenoscopy (EGD) Social History Social History Smoking status: Never smoker Second hand tobacco smoke exposure: Yes (spouse smokes) Alcohol intake: never Substance use: never Substance use type: does not use Living arrangements: with family Spiritual care concerns: No Meds Home Medications and Allergies Home Medications Medication Instructions Recorded Confirmed Type escitalopram oxalate 10 mg tablet 15 mg PO HS 03/05/22 02/22/24 History acetaminophen 325 mg tablet 650 mg PO Q4-6H PRN Pain (Scale 02/22/24 02/22/24 History (Tylenol) Score 1-3) Allergies Allergy/AdvReac Type Severity Reaction Status Date / Time morphine Allergy Mild Palpitation Verified 02/22/24 17:46 s Exam Const: General: cooperative, healthy appearing, comfortable and overweight Orientation/consciousness: oriented to person, oriented to place and oriented to time Resp: Effort & Inspection: normal respiratory effort Cardio: Rate: regular rate Rhythm: regular rhythm Heart sounds: S1 normal heart sound present and S2 normal heart sound present GI: Inspection: normal to inspection : External Female Exam: normal external appearance Speculum Exam - Vagina: normal appearance of the vagina Speculum Exam - Cervix: Cervix absent Bimanual exam- vagina & uterus: uterus absent Bimanual Exam- Adnexa, other: tender on the right Assessment and Plan Assessment and plan (1) Right ovarian cyst: Code(s): N83.201 - Unspecified ovarian cyst, right side Status: Acute (2) Pelvic pain: Code(s): R10.2 - Pelvic and perineal pain Status: Acute Assessment and Plan: Laparoscopy with right cystectomy and possible right salpingo-oophorectomy
[2024-02-26] VITALS (12 sets, daily range): BP systolic 90–130; BP diastolic 63–85; PULSE 66–100; RESP 12–18; TEMP 36.2–36.6; O2SAT 97–100; BMI 37.0
--- NOTE | 2024-02-26 06:14 | WPDHPUPDATE1 ---
History and Physical Update Update Date/Time: 02/26/24 06:14 History and Physical has been reviewed, including an updated exam of the patient. There are NO changes in the patient's condition. Risks, benefits, and alternatives have been discussed and questions answered. Patient agrees to proceed with procedure.
--- NOTE | 2024-02-26 07:14 | P.PNAN_ITS ---
Anes - Initial Pre Proc Eval Procedure: Operation Date: 02/26/24 10:15 Proposed Procedures p Laparoscopic Right Ovarian Cystectomy - Kirill Chiu MD Date/Time: 02/26/24 07:14 Surgeon: Kirill Chiu MD Pre Op Diagnosis: pelvic pain , right ovarin cyst Patient Data Age: 28 Gender: F Height: 1.55 m Weight: 92.08 kg Allergies Allergy/AdvReac Type Severity Reaction Status Date / Time morphine Allergy Mild Palpitation Verified 02/22/24 17:46 s Home Medications Medication Instructions Recorded Confirmed Type escitalopram oxalate 10 mg tablet 15 mg PO HS 03/05/22 02/22/24 History acetaminophen 325 mg tablet 650 mg PO Q4-6H PRN Pain (Scale 02/22/24 02/22/24 History (Tylenol) Score 1-3) Patient hx anesthesia problems: none Family hx anesthesia problems: none Results Review: All pre-operative results and documents have been reviewed as part of the pre- operative evaluation. [facility] Past Medical History Medical History (Updated 02/26/24 @ 07:14 by Russ Tabares DO) Anxiety Endometriosis IBS (irritable bowel syndrome) Obesity Palpitations Surgical History Surgical History (Updated 02/26/24 @ 07:14 by Russ Tabares DO) H/O laparoscopy H/O: hysterectomy History of esophagogastroduodenoscopy (EGD) History of tubal ligation Social History Social History Smoking status: Never smoker Second hand tobacco smoke exposure: Yes (spouse smokes) Alcohol intake: never Substance use: never Substance use type: does not use Living arrangements: with family Spiritual care concerns: No Anes - Eval Final PreProcedure Day of Procedure 02/26/24 07:14 Patient weight: obese Heart: regular rate and rhythm Lungs: clear to auscultation Airway: Mallampati scale class 1 Neurological: alert and oriented Last oral intake: >/= 8 hours ASA classification: II Emergent: no Anesthetic plan: proceed Anesthesia type and monitoring: general ETT and standard monitoring Results Review: All pre-operative results and documents have been reviewed as part of the pre- operative evaluation. Informed Consent: The patient's anesthetic plan and its attendant risks and benefits were discussed with the patient/family/POA. Questions were solicited and answers provided to the satisfaction of the patient/family/POA.
[2024-02-26] MEDS: ACETAMINOPHEN 500 MG TABLET 1000 MG PO (09:03)
[2024-02-26] MEDS: LACTATED RINGERS 1,000 ML 30 ML IV CONT (09:03)
[2024-02-26] MEDS: KETOROLAC 15 MG/ML VIAL (*BKC) IV PUSH (09:03)
[2024-02-26] MEDS: SCOPOLAMINE 1 MG PATCH 1 PATCH TRANSDERM (09:12)
--- NOTE | 2024-02-26 10:32 | P.OP_ITS ---
Procedure Note - Detailed Date of Procedure 02/26/24 Pre-op Diagnosis pelvic pain , right ovarin cyst Post-op Diagnosis Other (Pelvic pain/ right ovarian cyst/ endometriosis/adhesions) Procedure Performed laparoscopy with cauterization of endometriosis / destruction of right cyst/lysis of adhesions Surgeon Kirill Chiu MD Anesthesia General Indications 28-year-old female status post hysterectomy and left salpingo-oophorectomy admitted for right ovarian cystectomy via laparoscopy. Findings Absent uterus left ovary and tube. Absent l right tube. Small right ovarian cyst. Adhesions along the left lateral sidewall to the colon. Small areas of powder burn endometriosis along the uterine cuff Description of Procedure patient was prepped and draped in the normal sterile fashion placed in the luigi mirtha lithotomy position. Under excellent general trach anesthesia weighted speculum placed in posterior fornix vagina. Sponge stick placed in the bladder drained of clear urine. The weighted speculum was removed and the gloves were changed. A supraumbilical incision made the Veress needle passed in the abdomen. Abdomen filled with CO2 gas to 15 of mercury. 5Mm trocar advanced under direct v isualization assuring no injury. Patient placed in Trendelenburg and a suprapubic incision made. Five advanced under direct visualization assuring injury. The above findings were seen. Using Endo Katheryn the sharp dissection the colonic adhesions were sharply dissected relieved. The vaginal cuff appeared clear of adhesions however small areas of endometriosis were seen these were point cauterized 35 w per 2nd monopolar cautery. Small right cyst was seen but the ovary itself appeared grossly within limits cyst was opened and drained clear fluid. Irrigation was undertaken to clear and no other abnormalities seen. Photo documentation of the gallbladder liver were undertaken as well as the appendix which all appeared within. The lower sites and removed. The gas removed from the abdomen. The upper site incisions closed with 4-0. Patient went to recovery in satisfactory condition. All sponge, needle, instrument counts were correct. Were no immediate complications Estimated Blood Loss 5 Drains No Packing No Pathology None sent Complications No immediate complications Condition Stable Disposition PACU
--- NOTE | 2024-02-26 11:13 | SUR.PHASEI ---
1100: Simple mask removed.
[2024-02-26] MEDS: fentaNYL CITRATE INJ (*CRX) 100 MCG/2 ML VIAL 25 MCG IV PUSH ×3 (11:28→11:47)
[2024-02-26] MEDS: ONDANSETRON INJ 4 MG/2 ML VIAL IV PUSH (11:33)
[2024-02-26] MEDS: oxyCODONE HCL (*CRX) 5 MG TAB IR PO (12:23)
== END 2024-02-26 13:10 | disposition home or self-care (01) ==
PROVIDERS: PCP Physician Assistant; Visit Provider Obstetrics & Gynecology
PROC: (CPT 49320; principal; 2024-02-26 10:15)
DX: N83.201 Unspecified ovarian cyst, right side (principal); N80.8 Other endometriosis; N73.6 Female pelvic peritoneal adhesions (postinfective); E66.9 Obesity, unspecified; Z68.37 Body mass index [BMI] 37.0-37.9, adult
CPT/HCPCS: 58662; A9270; J0330; J1100; J1885; J2250; J2405; J2704; J3010; J7120